=== PATIENT | female | born 1965 | race Caucasian/White ===

== ENCOUNTER → 2018-06-20 | Outpatient (CLI) | payer OTHER ==
[2017-08-09 09:15] VITALS: BMI 34.5
[~2018-06-20] MED LIST: HYDR2TAB4 PO; HYDR2TAB74 PO; NITR-106 PO; PROM-110 PO; RIZA10TA PO
--- NOTE | 2018-06-24 09:07 | RADIOLOGY IMAGING REPORT ---
FACILITY: [facility] - [place] PATIENT NAME: LISA MORALES : [id number] MR: [id number] V: [id number] EXAM DATE: [id number] ORDERING PHYSICIAN: LESTER RIBEIRO TECHNOLOGIST: Autumn Patel PROCEDURE:BILATERAL DIAGNOSTIC DIGITAL MAMMOGRAM WITH CAD ASSISTED INTERPRETATION & 3D TOMOSYNTHESIS COMPARISON:Prior mammograms 09/20/15, 12/08/08. INDICATIONS:Palpable lump 12-1 o'clock position of the Right breast. FINDINGS: Extremely dense heterogeneous fibroglandular tissue is seen throughout the breasts. There is a large round lobular mass in the deep central Right breast. Today's Right breast Ultrasound did demonstrate a large cyst in this location. DIAGNOSTIC CATEGORY 3--PROBABLY BENIGN FINDING. RECOMMENDATIONS: SIX MONTH FOLLOW-UP ULTRASOUND: RIGHT BREAST. IMPRESSION: BIRADS 3: Probably benign finding. A 6 month follow-up Right breast Ultrasound is recommended as described in Today's Right breast Ultrasound report. There is a large lobular mass in the deep central portion Right breast likely accounting for patient's palpable findings. Today's Right breast Ultrasound did demonstrate a large cyst in this location. Dictated by: Kesha Herrera M.D. on 06/23/2018 at 11:10 Transcribed by: AVINASH on 06/23/2018 at 13:25 Approved by: Kesha Herrera M.D. on 06/24/2018 at 9:05 [facility]
--- NOTE | 2018-06-24 09:07 | RADIOLOGY IMAGING REPORT ---
FACILITY: [facility] - [place] PATIENT NAME: LISA MORALES : [id number] MR: [id number] V: [id number] EXAM DATE: [id number] ORDERING PHYSICIAN: LESTER RIBEIRO TECHNOLOGIST: Kelley Martinez RDMS PROCEDURE:US RIGHT BREAST COMPLETE COMPARISON:None. INDICATIONS:Palpable lump 12-1 o'clock position of the Right breast for 1 month. FINDINGS: There is a 6.8 x 6.4 x 10mm thick walled cyst in the 12 o'clock position of the Right breast 4cm from the nipple. In the 12 o'clock position of the Right breast 3cm from the nipple is a 4.7cm cyst. In the 7 o'clock position of the Right breast there is an 8.2 x 1.7 x 5.8mm cyst and several mildly dilated ducts. In the 9 o'clock position of the Right breast several mildly dilated ducts are also present measuring up to 2.5mm in diameter. In the 10 o'clock position of the Right breast there is an 8.5mm cyst. In the 10 o'clock position of the Right breast 5cm from the nipple there is an 8.4 x 4.3 x 8.2mm partially cystic partially echogenic nodule. DIAGNOSTIC CATEGORY 3--PROBABLY BENIGN FINDING. RECOMMENDATIONS: SIX MONTH FOLLOW-UP ULTRASOUND: RIGHT BREAST. IMPRESSION: BIRADS 3: Probable benign finding. 1. In the 10 o'clock position of the Right breast there is a partially cystic partially solid 8.4 x 8.2 x 4.3mm nodule for which 6 month Right breast Ultrasound is recommended. 2. There are multiple other breast cysts identified the largest in the 12 o'clock position which likely accounts for the palpable finding. Dictated by: Kesha Herrera M.D. on 06/23/2018 at 11:05 Transcribed by: AVINASH on 06/23/2018 at 13:37 Approved by: Kesha Herrera M.D. on 06/24/2018 at 9:05 [facility]
== END ==
LOC: MAMO 00:54
PROVIDERS: ATTEND Obstetrics & Gynecology
DX: N60.01 Solitary cyst of right breast (principal)
CPT/HCPCS: 77062; 77066

== ENCOUNTER 2018-07-02 01:02 | Outpatient (RCR) | payer OTHER ==
[2017-08-09 09:15] VITALS: BMI 34.5
[2018-07-01 15:27] LABS: INR 0.93
--- NOTE | 2018-07-02 16:35 | RADIOLOGY IMAGING REPORT ---
FACILITY: [facility] [place]IENT NAME: LISA MORALES : [id number] MR: [id number] V: [id number] EXAM DATE: [id number] ORDERING PHYSICIAN: LESTER RIBEIRO TECHNOLOGIST: Marcello Bar RDMS, [facility] PROCEDURE: CYST ASPIRATION RIGHT BREAST COMPARISON: Right breast Ultrasound 06/20/2018. INDICATIONS: RT BREAST CYST FINDINGS: Prior to the exam, risks and benefits of the Right breast cyst aspiration were discussed with the Patient and informed consent was obtained. The patient was placed on the gurney and the Right breast was prepped and draped in normal sterile fashion. 1% lidocaine was injected for analgesia. Under Ultrasound guidance an 18 gauge needle was advanced into the fluid collection. Approximately 20cc of thin, yellow fluid was aspirated. The needle was then removed. There were no immediate post procedure complications. RECOMMENDATIONS: ROUTINE MAMMOGRAM AND CLINICAL EVALUATION. IMPRESSION: Ultrasound guided Right breast cyst aspiration. Dictated by: Emilio Coles M.D. on 07/02/2018 at 12:54 Transcribed by: AVINASH on 07/02/2018 at 15:29 Approved by: Emilio Coles M.D. on 07/02/2018 at 16:35 [facility]
== END 2018-07-02 18:00 | disposition home or self-care (01) ==
LOC: US 01:02 → EDSTATUS 14:56 → US 18:00
PROVIDERS: ATTEND Obstetrics & Gynecology
DX: R79.1 Abnormal coagulation profile (principal); N63.10 Unspecified lump in the right breast, unspecified quadrant
CPT/HCPCS: 36415; 76942; 85610; 85730; 88104

== ENCOUNTER → 2019-01-08 | Outpatient (CLI) | payer OTHER ==
[2017-08-09 09:15] VITALS: BMI 34.5
--- NOTE | 2019-01-08 16:10 | RADIOLOGY IMAGING REPORT ---
[place] [facility] [place] Areli Fang : 1965 MR: [id number] V: [id number] EXAM DATE: ORDERING PHYSICIAN: ROSANGELA MCNAMARA TECHNOLOGIST: Location: [facility] Patient: Areil Fang : 1965 Visit/Account:[id number] Date of Sevice: 01/08/2019 EXAMINATION: PA and Lateral Chest 01/08/2019 3:27 PM HISTORY: Cough COMPARISON: None FINDINGS: Cardiomediastinal contours: Normal heart size. Tortuosity of the descending aorta. Lungs and pleura: Normal Bones/soft tissues: Normal Right upper quadrant cholecystectomy clips. IMPRESSION: No acute cardiopulmonary abnormality. Report Dictated By: Emilio Hernandez MD at 01/08/2019 4:05 PM Report E-Signed By: Emilio Hernandez MD at 01/08/2019 4:05 PM WSN:[email or web address]
== END ==
LOC: RAD 15:23
PROVIDERS: ATTEND Physician Assistant
DX: R05 Cough (principal)
CPT/HCPCS: 71046